=== PATIENT | male | born 1940 | race Caucasian/White ===

== ENCOUNTER 2018-08-03 10:41 | Inpatient (IN) ==
[2018-08-03] MEDS ORDERED: MAGNESIUM SULF RIDER 2 GM in PREMIX 1 EACH IV PRN (11:07)
[2018-08-03] MEDS ORDERED: diphenhydrAMINE CAP 25 MG CAPSULE PO ONE (11:07)
[2018-08-03] MEDS ORDERED: DIAZEPAM 5 MG TABLET PO ONE (11:07)
[2018-08-03] MEDS ORDERED: POTASSIUM CHLORIDE RIDER 10 MEQ in PREMIX 1 EACH IV PRN (11:07)
[2018-08-03] MEDS ORDERED: ASPIRIN 325 MG TABLET PO ONE (11:07)
[2018-08-03] MEDS ORDERED: DEXTROSE 5% NACL 0.45% 1,000 ML IV SCH (11:30)
[2018-08-03 11:34] LABS: Basophils % 0.3 % (0.0-0.8); Eosinophils # 0.1 10*3/uL (0.0-0.87); Eosinophils % 0.6 % (0.00-10.9); Hematocrit 40.3 VOL% (42.0-52.0); Hemoglobin 13.4 GM/DL (14.0-18.0); Immature Granulocytes % 0.3 %; Immature Granulocytes Absolute 0.03 #; Lymphocytes # 0.9 10*3/uL (1.4-4.0); Lymphocytes % 10.4 % (21.2-54.2); Mean Corpuscular HGB Conc 33.3 GM/DL (32-36); Mean Corpuscular Hemoglobin 32 PG (27-34); Mean Corpuscular Volume 97.3 FL (87-102); Mean Platelet Volume 11.2 FL (9.6-12.0); Monocytes # 0.5 10*3/uL (0.11-0.8); Monocytes % 5.7 % (1.7-12.7); Neutrophils # 7.5 10*3/uL (1.4-7.4); Neutrophils % 82.7 % (38.7-73.9); Platelet Count 145 T/CUMM (130-400); Red Blood Count 4.14 MC/CUMM (3.8-5.5); Red Cell Distribution Width 12.9 % (9.3-17.3); White Blood Count 9.1 T/CUMM (4-12)
[2018-08-03 11:43] LABS: PT Patient Result 10.7 SECS
[2018-08-03 11:56] LABS: Anisocytosis Slight; Band Neutrophils 9 % (0-10); Lymphocytes 9 % (20-55); Macrocytosis Slight; Platelet Estimate Adequate; Segmented Neutrophils 80 % (50-85); Total Cells Counted 100
[2018-08-03 11:57] LABS: Calcium 9.1 MG/DL (8.5-10.1); Osmolality,Calculated 286.1 MOS/KG (273-304); Potassium 3.7 MMOL/L (3.5-5.1)
[2018-08-03] MEDS ORDERED: ASPIRIN 325 MG TABLET ONE (13:11)
[2018-08-03] MEDS ORDERED: DIAZEPAM 5 MG TABLET ONE (13:11)
[2018-08-03] MEDS ORDERED: diphenhydrAMINE CAP 25 MG CAPSULE ONE (13:11)
[2018-08-03] MEDS ORDERED: LIDOCAINE 1% 20 ML VIAL ONE (13:48)
[2018-08-03] MEDS ORDERED: HEPARIN/NACL 0.9% 2 UNITS/ML 1,000 ML IV ONE (13:48)
[2018-08-03] MEDS ORDERED: VERAPAMIL 5 MG/2 ML VIAL ONE (13:54)
[2018-08-03] MEDS ORDERED: NITROGLYCERIN DRIP 50 MG/250 ML BOTTLE IV ONE (13:54)
[2018-08-03] MEDS ORDERED: MIDAZOLAM 2 MG/2 ML VIAL ONE (13:54)
[2018-08-03] MEDS ORDERED: fentaNYL 100 MCG/2 ML VIAL ONE (13:54)
[2018-08-03] MEDS ORDERED: ENOXAPARIN 60 MG/0.6 ML SYRINGE ONE (14:22)
[2018-08-03] MEDS ORDERED: SODIUM CHLORIDE 0.9% 1,000 ML IV SCH (17:00)
[2018-08-03] MEDS: CHLORHEXIDINE 4% SOLN 118 ML BOTTLE TOP SCH ×2 (19:07→23:41)
[2018-08-03] MEDS ORDERED: diphenhydrAMINE CAP 50 MG CAPSULE PO ONE (20:17)
[2018-08-03] MEDS: CHLORHEXIDINE 0.12% ORAL RINSE 60 ML BOTTLE SWISH/SPIT SCH (20:32)
[2018-08-03] MEDS ORDERED: PRIMIDONE 250 MG TABLET PO SCH (21:00)
[2018-08-03] MEDS ORDERED: TAMSULOSIN 0.4 MG CAPSULE PO SCH (21:00)
[2018-08-03] MEDS ORDERED: ENOXAPARIN 40 MG/0.4 ML SYRINGE SUBCUT SCH (21:00)
[2018-08-03] MEDS ORDERED: SIMVASTATIN 40 MG TABLET PO SCH (21:00)
[2018-08-03] MEDS ORDERED: ASPIRIN EC 81 MG TABLET PO SCH (21:00)
[2018-08-04 04:27] LABS: Basophils % 0.4 % (0.0-0.8); Eosinophils # 0.4 10*3/uL (0.0-0.87); Eosinophils % 5.4 % (0.00-10.9); Hematocrit 37.5 VOL% (42.0-52.0); Hemoglobin 12.1 GM/DL (14.0-18.0); Immature Granulocytes % 0.4 %; Immature Granulocytes Absolute 0.03 #; Lymphocytes # 1.9 10*3/uL (1.4-4.0); Lymphocytes % 27.3 % (21.2-54.2); Mean Corpuscular HGB Conc 32.3 GM/DL (32-36); Mean Corpuscular Hemoglobin 32 PG (27-34); Mean Corpuscular Volume 100.3 FL (87-102); Monocytes # 0.8 10*3/uL (0.11-0.8); Monocytes % 11.6 % (1.7-12.7); Neutrophils # 3.8 10*3/uL (1.4-7.4); Neutrophils % 54.9 % (38.7-73.9); Platelet Count 128 T/CUMM (130-400); Red Blood Count 3.74 MC/CUMM (3.8-5.5)
[2018-08-04] MEDS: CHLORHEXIDINE 4% SOLN 118 ML BOTTLE TOP SCH ×2 (04:42→19:46)
[2018-08-04 04:45] LABS: Calcium 8.3 MG/DL (8.5-10.1); Osmolality,Calculated 285.1 MOS/KG (273-304)
[2018-08-04] MEDS ORDERED: TISSUE ADHESIVE 1 EACH APPLICATOR TOP ONE (05:13)
[2018-08-04] MEDS ORDERED: PAPAVERINE 60 MG/2 ML VIAL ONE (05:13)
[2018-08-04] MEDS ORDERED: VANCOMYCIN 1,000 MG VIAL ONE (05:14)
[2018-08-04] MEDS ORDERED: METOPROLOL SUCCINATE XL 25 MG TABLET PO SCH (05:30)
[2018-08-04] MEDS ORDERED: LOSARTAN 50 MG TABLET PO SCH (05:30)
[2018-08-04] MEDS ORDERED: FAMOTIDINE 20 MG TABLET PO ONE (06:00)
[2018-08-04] MEDS ORDERED: DIAZEPAM 5 MG TABLET PO ONE (06:00)
[2018-08-04] MEDS ORDERED: HEPARIN/NACL 0.9% 2 UNITS/ML 500 ML IV ONE (06:21)
[2018-08-04] MEDS ORDERED: NITROGLYCERIN DRIP 50 MG/250 ML BOTTLE IV ONE (06:21)
[2018-08-04] MEDS ORDERED: AMINOCAPROIC ACID 5,000 MG/20 ML VIAL ONE (06:21)
[2018-08-04] MEDS ORDERED: PHENYLEPHRINE DRIP 20 MG/250 ML PREMIX IV ONE (06:21)
[2018-08-04] MEDS ORDERED: MIDAZOLAM 10 MG/2 ML VIAL ONE (06:22)
[2018-08-04] MEDS ORDERED: CEFUROXIME INJ 1,500 MG in SYRINGE 1 EACH IV ONE (06:30)
[2018-08-04 07:58] LABS: ABG Base Excess 3.1 MMOL/L (-2.5-2.5); ABG HCO3 27.2 MMOL/L (20-26); ABG Oxygen Saturation 99.7 % (95-100); ABG PH 7.443 (7.35-7.45); ABG TCO2 24.3 MMOL/L (23-27); Glucose Heart Surgery 116 MG/DL (74-106); Hematocrit Heart Surgery 35.3 PERCENT (42-52); Hemoglobin Heart Surgery 11.5 G/DL (14.0-18.0); Ionized Calcium Arterial 1.11 MMOL/L (1.21-1.46); PH Patient Temp Arterial 7.443; Patient Temperature 37 CELCIUS; Potassium Heart/CVR 3.6 MMOL/L (3.5-5.1); Sodium Heart/CVR 139 MMOL/L (135-145)
[2018-08-04 08:12] LABS: Amorphous Crystals,Urine Occasional /HPF (Few); Apearance,Urine Slightly Hazy (Clear); Bacteria,Urine Few /HPF (Few); Bilirubin,Urine Negative (Negative); Blood, Urine Negative (Negative); Glucose,Urine (UA) Negative (Negative); Ketones,Urine Negative (Negative); Nitrite,Urine Negative (Negative); Protein,Urine Negative; Squamous Epithelial Cell,Urine Occasional /HPF (0-10); Urine Color Yellow (Yellow); Urine Specific Gravity 1.014 (1.001-1.035); Urine Urobilinogen < 2.0 EU/DL (0.2-1.0); WBC,Urine 17 /HPF (0-6)
[2018-08-04 08:58] LABS: Hematocrit Heart Surgery 25.6 PERCENT (42-52); Hemoglobin Heart Surgery 8.2 G/DL (14.0-18.0); PCO2 Patient Temp Venous 34.2 MM HG; PH Patient Temp Venous 7.522; PO2 Patient Temp Venous 41.5 MM HG; Potassium Heart/CVR 4.8 MMOL/L (3.5-5.1); VBG Base Excess 5.2 MEQ/L (0-4); VBG Oxygen Saturation 86.7 %; VBG PCO2 37.7 MMHG (41-51); VBG PH 7.492; VBG PO2 47.6 MMHG (17-40)
[2018-08-04] MEDS ORDERED: ESCITALOPRAM 10 MG TABLET PO SCH (09:00)
[2018-08-04] MEDS ORDERED: PANTOPRAZOLE 40 MG TABLET PO SCH (09:00)
[2018-08-04] MEDS ORDERED: hydroCHLOROthiazide 25 MG TABLET PO SCH (09:00)
[2018-08-04 09:25] LABS: Hemoglobin Heart Surgery 8.7 G/DL (14.0-18.0); PH Patient Temp Venous 7.569; PO2 Patient Temp Venous 37.4 MM HG; Potassium Heart/CVR 4.5 MMOL/L (3.5-5.1); VBG Base Excess 4.8 MEQ/L (0-4); VBG HCO3 28.6 MEQ/L (24-28); VBG PCO2 35.2 MMHG (41-51); VBG PH 7.507; VBG PO2 49.1 MMHG (17-40)
[2018-08-04] MEDS ORDERED: ALBUMIN 5% 12.5 GM/250 ML VIAL IV ONE ×3 (10:02→11:23)
[2018-08-04] MEDS ORDERED: POTASSIUM CHLORIDE RIDER 100 ML IV ONE (10:03)
[2018-08-04 10:13] LABS: Hemoglobin Heart Surgery 11.1 G/DL (14.0-18.0); PCO2 Patient Temp Venous 30.6 MM HG; PH Patient Temp Venous 7.552; PO2 Patient Temp Venous 38.2 MM HG; Potassium Heart/CVR 4.5 MMOL/L (3.5-5.1); VBG Base Excess 3.9 MEQ/L (0-4); VBG Oxygen Saturation 84.7 %; VBG PCO2 34.9 MMHG (41-51); VBG PH 7.506; VBG PO2 47.2 MMHG (17-40)
[2018-08-04 10:27] LABS: Hematocrit Heart Surgery 30.4 PERCENT (42-52); Hemoglobin Heart Surgery 9.8 G/DL (14.0-18.0); PCO2 Patient Temp Venous 41.3 MM HG; PH Patient Temp Venous 7.442; PO2 Patient Temp Venous 45.3 MM HG; Potassium Heart/CVR 4.3 MMOL/L (3.5-5.1); VBG Base Excess 3.8 MEQ/L (0-4); VBG HCO3 27.5 MEQ/L (24-28); VBG Oxygen Saturation 81.4 %; VBG PCO2 41.3 MMHG (41-51); VBG PH 7.442; VBG PO2 45.3 MMHG (17-40)
[2018-08-04 10:59] LABS: Hematocrit Heart Surgery 24.3 PERCENT (42-52); Hemoglobin Heart Surgery 7.8 G/DL (14.0-18.0); PCO2 Patient Temp Venous 41.7 MM HG; PH Patient Temp Venous 7.426; PO2 Patient Temp Venous 40.8 MM HG; Potassium Heart/CVR 3.6 MMOL/L (3.5-5.1); VBG Base Excess 2.8 MEQ/L (0-4); VBG HCO3 26.7 MEQ/L (24-28); VBG Oxygen Saturation 75.6 %; VBG PCO2 41.7 MMHG (41-51); VBG PH 7.426; VBG PO2 40.8 MMHG (17-40)
[2018-08-04] MEDS ORDERED: THROMBIN TOPICAL (RECOMBINANT) 5,000 UNIT VIAL TOP ONE (11:19)
[2018-08-04] MEDS ORDERED: MAGNESIUM SULFATE 10 GM/20 ML VIAL IV ONE (11:22)
[2018-08-04] MEDS ORDERED: ALBUMIN 25% 25 GM/100 ML VIAL IV ONE (11:22)
[2018-08-04] MEDS ORDERED: MANNITOL 100 GM/500 ML BAG IV ONE (11:22)
[2018-08-04] MEDS ORDERED: HEPARIN 10,000 UNIT/10 ML VIAL ONE (11:22)
[2018-08-04] MEDS ORDERED: SODIUM BICARBONATE 50 MEQ/50 ML SYRINGE IV ONE (11:22)
[2018-08-04] MEDS ORDERED: DEXTROSE 5% KCL 20 MEQ 20 MEQ/1,000 ML BAG IV ONE (11:22)
[2018-08-04] MEDS ORDERED: PROTAMINE SULFATE 250 MG/25 ML VIAL IV ONE (11:22)
[2018-08-04] MEDS ORDERED: FUROSEMIDE 20 MG/2 ML VIAL ONE (11:23)
[2018-08-04] MEDS ORDERED: methylPREDNISolone SOD SUC 1,000 MG/8 ML VIAL ONE (11:23)
[2018-08-04 11:31] LABS: ABG Base Excess -0.6 MMOL/L (-2.5-2.5); ABG HCO3 22.8 MMOL/L (20-26); ABG Oxygen Saturation 98.6 % (95-100); ABG PCO2 32.8 MM HG (35-48); ABG PO2 340.9 MM HG (80-95); ABG TCO2 23.8 MMOL/L (23-27); Glucose Heart Surgery 244 MG/DL (74-106); Hemoglobin Heart Surgery 9.8 G/DL (14.0-18.0); Ionized Calcium Arterial 1.29 MMOL/L (1.21-1.46); PCO2 Patient Temp Arterial 32.8 MMHG; PO2 Patient Temp Arterial 340.9 MM HG; Patient Temperature 37 CELCIUS; Potassium Heart/CVR 3.1 MMOL/L (3.5-5.1); Sodium Heart/CVR 133 MMOL/L (135-145)
[2018-08-04] MEDS ORDERED: SODIUM CHLORIDE 0.9% 250 ML IV PRN (12:40)
[2018-08-04] MEDS ORDERED: ACETAMINOPHEN 650 MG SUPP RECTAL PRN (12:40)
[2018-08-04] MEDS ORDERED: MAGNESIUM SULF RIDER 2 GM in PREMIX 1 EACH IV PRN (12:40)
[2018-08-04] MEDS ORDERED: MAGNESIUM SULF RIDER 4 GM in PREMIX 1 EACH IV PRN (12:40)
[2018-08-04] MEDS ORDERED: ALBUMIN 5% 12.5 GM in PREMIX 1 EACH IV PRN (12:40)
[2018-08-04] MEDS ORDERED: DEXTROSE 50% 25 GM/50 ML SYRINGE IV PRN ×2 (12:40)
[2018-08-04] MEDS ORDERED: INSULIN REGULAR 100 UNIT/ML IV PRN (12:40)
[2018-08-04] MEDS ORDERED: CHLORHEXIDINE 4% SOLN 118 ML BOTTLE TOP PRN (12:40)
[2018-08-04] MEDS ORDERED: MIDAZOLAM 2 MG/2 ML VIAL IV PRN (12:40)
[2018-08-04] MEDS ORDERED: CALCIUM CHLORIDE 1,000 MG/10 ML SYRINGE IV PRN (12:40)
[2018-08-04] MEDS ORDERED: INSULIN REGULAR DRIP 100 ML IV SCH (13:00)
[2018-08-04] MEDS ORDERED: SODIUM CHLORIDE 0.45% 1,000 ML IV SCH (13:00)
[2018-08-04] MEDS ORDERED: CALCIUM CHLORIDE 1,000 MG/10 ML VIAL IV ONE (13:29)
[2018-08-04] MEDS ORDERED: SEVOFLURANE 1 UNIT/15 MINUTE INH ONE (13:30)
[2018-08-04] MEDS ORDERED: ETOMIDATE 40 MG/20 ML VIAL IV ONE (13:30)
[2018-08-04] MEDS ORDERED: ePHEDrine 50 MG/ML AMP ONE (13:30)
[2018-08-04] MEDS ORDERED: GLYCOPYRROLATE 0.4 MG/2 ML VIAL ONE (13:30)
[2018-08-04] MEDS ORDERED: ESMOLOL 100 MG/10 ML VIAL IV ONE (13:30)
[2018-08-04] MEDS ORDERED: MINERAL OIL/PETROLATUM OPH OINT 3.5 GM TUBE ONE (13:30)
[2018-08-04] MEDS ORDERED: LIDOCAINE 1% 5 ML VIAL ONE (13:30)
[2018-08-04] MEDS ORDERED: PHENYLEPHRINE 1 MG/10 ML SYRINGE IV ONE (13:31)
[2018-08-04] MEDS ORDERED: ROCURONIUM 100 MG/10 ML VIAL IV ONE (13:31)
[2018-08-04 13:49] LABS: ABG Base Excess -0.3 MMOL/L (-2.5-2.5); ABG HCO3 24.2 MMOL/L (20-26); ABG Oxygen Saturation 99.3 % (95-100); ABG PCO2 40.2 MM HG (35-48); ABG PH 7.393 (7.35-7.45); ABG TCO2 22.5 MMOL/L (23-27); Glucose Heart Surgery 241 MG/DL (74-106); Hematocrit Heart Surgery 29.1 PERCENT (42-52); Hemoglobin Heart Surgery 9.4 G/DL (14.0-18.0); Potassium Heart/CVR 3.5 MMOL/L (3.5-5.1)
[2018-08-04 13:53] LABS: Basophils % 0.1 % (0.0-0.8); Eosinophils % 0.3 % (0.00-10.9); Hematocrit 27.7 VOL% (42.0-52.0); Immature Granulocytes % 0.5 %; Immature Granulocytes Absolute 0.05 #; Lymphocytes # 0.6 10*3/uL (1.4-4.0); Lymphocytes % 5.7 % (21.2-54.2); Mean Corpuscular HGB Conc 32.1 GM/DL (32-36); Mean Corpuscular Hemoglobin 30 PG (27-34); Mean Corpuscular Volume 94.2 FL (87-102); Mean Platelet Volume 10.9 FL (9.6-12.0); Monocytes # 0.9 10*3/uL (0.11-0.8); Monocytes % 8.7 % (1.7-12.7); Neutrophils # 8.3 10*3/uL (1.4-7.4); Neutrophils % 84.7 % (38.7-73.9); Red Cell Distribution Width 16.8 % (9.3-17.3)
[2018-08-04 14:00] LABS: Hemoglobin 8.9 GM/DL (14.0-18.0); Platelet Count 104 T/CUMM (130-400); Red Blood Count 2.94 MC/CUMM (3.8-5.5); White Blood Count 9.8 T/CUMM (4-12)
[2018-08-04 14:02] LABS: INR 1.1; PT Patient Result 12.3 SECS; Partial Thromboplastin Time 25.3 SECS (0-40)
[2018-08-04 14:07] LABS: Blood Urea Nitrogen 16 MG/DL (7-18); Calcium 8.1 MG/DL (8.5-10.1); Glucose 229 MG/DL (74-106); Potassium 3.6 MMOL/L (3.5-5.1); Sodium 143 MMOL/L (136-145)
[2018-08-04 14:20] LABS: Band Neutrophils 16 % (0-10); Eosinophils 1 % (0-10); Lymphocytes 2 % (20-55); Metamyelocytes 1 %; Segmented Neutrophils 72 % (50-85); Total Cells Counted 100
[2018-08-04 14:21] LABS: Anisocytosis 2+; Atypical Lymphocytes Few; Hypochromasia 2+; Macrocytosis 2+
[2018-08-04 14:22] LABS: Platelet Estimate Decreased
[2018-08-04] MEDS ORDERED: ASPIRIN 325 MG TABLET PER TUBE ONE (14:30)
[2018-08-04] MEDS: SODIUM CHLORIDE 0.45% 1,000 ML IV SCH (14:44)
[2018-08-04] MEDS: MORPHINE 4 MG/1 ML VIAL IV PRN (16:10)
[2018-08-04] MEDS: POTASSIUM CHLORIDE RIDER 20 MEQ in PREMIX 1 EACH IV PRN ×2 (16:40→23:04)
[2018-08-04] MEDS: POTASSIUM CHLORIDE RIDER 10 MEQ in PREMIX 1 EACH IV PRN (17:10)
[2018-08-04] MEDS: CHLORHEXIDINE 0.12% ORAL RINSE 60 ML BOTTLE SWISH/SPIT SCH ×2 (19:47→21:42)
[2018-08-04 20:24] LABS: ABG Base Excess -1.8 MMOL/L (-2.5-2.5); ABG HCO3 22.9 MMOL/L (20-26); ABG PCO2 41.1 MM HG (35-48); ABG PH 7.365 (7.35-7.45); ABG PO2 93.8 MM HG (80-95); ABG TCO2 21.3 MMOL/L (23-27); Glucose Heart Surgery 164 MG/DL (74-106); Hematocrit Heart Surgery 31.9 PERCENT (42-52); Hemoglobin Heart Surgery 10.3 G/DL (14.0-18.0); Potassium Heart/CVR 3.8 MMOL/L (3.5-5.1)
[2018-08-04] MEDS: VANCOMYCIN INJ 1,000 MG in SODIUM CHLORIDE 0.9% 250 ML IV SCH (21:41)
[2018-08-05] MEDS: MORPHINE 4 MG/1 ML VIAL IV PRN ×5 (01:17→23:25)
[2018-08-05 04:05] LABS: Calcium 7.5 MG/DL (8.5-10.1); Osmolality,Calculated 286.1 MOS/KG (273-304); Potassium 4.3 MMOL/L (3.5-5.1)
[2018-08-05 04:16] LABS: Basophils % 0.1 % (0.0-0.8); Hematocrit 28.8 VOL% (42.0-52.0); Hemoglobin 9.5 GM/DL (14.0-18.0); Immature Granulocytes % 0.5 %; Immature Granulocytes Absolute 0.09 #; Lymphocytes # 0.8 10*3/uL (1.4-4.0); Lymphocytes % 4.4 % (21.2-54.2); Mean Corpuscular Hemoglobin 31 PG (27-34); Mean Corpuscular Volume 94.1 FL (87-102); Mean Platelet Volume 11.4 FL (9.6-12.0); Monocytes # 1.8 10*3/uL (0.11-0.8); Monocytes % 10.2 % (1.7-12.7); Neutrophils # 14.8 10*3/uL (1.4-7.4); Neutrophils % 84.8 % (38.7-73.9); Platelet Count 112 T/CUMM (130-400); Red Blood Count 3.06 MC/CUMM (3.8-5.5); White Blood Count 17.4 T/CUMM (4-12)
[2018-08-05 04:38] LABS: Band Neutrophils 5 % (0-10); Hypochromasia 1+; Lymphocytes 6 % (20-55); Ovalocytes Slight; Platelet Estimate Decreased; Segmented Neutrophils 80 % (50-85); Total Cells Counted 100
[2018-08-05] MEDS: SODIUM CHLORIDE 0.45% 1,000 ML IV SCH (05:01)
[2018-08-05] MEDS ORDERED: FUROSEMIDE 40 MG/4 ML VIAL IV ONE (07:30)
[2018-08-05] MEDS: ASPIRIN EC 325 MG TABLET PO SCH (09:09)
[2018-08-05] MEDS: FUROSEMIDE 40 MG TABLET PO SCH (09:09)
[2018-08-05] MEDS: VANCOMYCIN INJ 1,000 MG in SODIUM CHLORIDE 0.9% 250 ML IV SCH ×2 (09:09→21:01)
[2018-08-05] MEDS: CLOPIDOGREL 75 MG TABLET PO SCH (09:10)
[2018-08-05] MEDS: PANTOPRAZOLE 40 MG VIAL IV SCH (09:10)
[2018-08-05] MEDS: CHLORHEXIDINE 0.12% ORAL RINSE 60 ML BOTTLE SWISH/SPIT SCH ×2 (09:10→21:04)
[2018-08-05] MEDS: INSULIN REGULAR 100 UNIT/ML SUBCUT SCH ×5 (09:36→23:36)
[2018-08-05] MEDS ORDERED: CALCIUM GLUCONATE 1,000 MG in SODIUM CHLORIDE 0.9% 100 ML IV ONE (11:00)
[2018-08-05] MEDS: MORPHINE 10 MG/1 ML VIAL IV PRN (13:54)
[2018-08-05] MEDS: ATORVASTATIN 40 MG TABLET PO SCH (22:33)
[2018-08-06] MEDS: MORPHINE 4 MG/1 ML VIAL IV PRN (04:46)
[2018-08-06 05:02] LABS: Basophils # 0.1 10*3/uL (0.0-0.2); Basophils % 0.2 % (0.0-0.8); Eosinophils % 0.1 % (0.00-10.9); Hematocrit 30.9 VOL% (42.0-52.0); Hemoglobin 10.1 GM/DL (14.0-18.0); Immature Granulocytes % 1.4 %; Immature Granulocytes Absolute 0.32 #; Lymphocytes # 2.1 10*3/uL (1.4-4.0); Lymphocytes % 8.8 % (21.2-54.2); Mean Corpuscular HGB Conc 32.7 GM/DL (32-36); Mean Corpuscular Hemoglobin 31 PG (27-34); Mean Corpuscular Volume 95.1 FL (87-102); Monocytes # 2.5 10*3/uL (0.11-0.8); Monocytes % 10.6 % (1.7-12.7); Neutrophils # 18.6 10*3/uL (1.4-7.4); Neutrophils % 78.9 % (38.7-73.9); Platelet Count 129 T/CUMM (130-400); Red Blood Count 3.25 MC/CUMM (3.8-5.5); Red Cell Distribution Width 16.4 % (9.3-17.3); White Blood Count 23.5 T/CUMM (4-12)
[2018-08-06 05:34] LABS: Calcium 8.1 MG/DL (8.5-10.1); Osmolality,Calculated 287.5 MOS/KG (273-304); Potassium 4.6 MMOL/L (3.5-5.1)
[2018-08-06] MEDS: INSULIN REGULAR 100 UNIT/ML SUBCUT SCH ×5 (05:41→21:23)
[2018-08-06 06:10] LABS: Band Neutrophils 4 % (0-10); Lymphocytes 10 % (20-55); Segmented Neutrophils 81 % (50-85); Total Cells Counted 100
[2018-08-06 06:11] LABS: Anisocytosis 1+; Hypochromasia Slight; Platelet Estimate Adequate
[2018-08-06] MEDS: VANCOMYCIN INJ 1,000 MG in SODIUM CHLORIDE 0.9% 250 ML IV SCH (08:20)
[2018-08-06] MEDS: FUROSEMIDE 40 MG TABLET PO SCH (08:21)
[2018-08-06] MEDS: PANTOPRAZOLE 40 MG VIAL IV SCH (08:21)
[2018-08-06] MEDS: CHLORHEXIDINE 0.12% ORAL RINSE 60 ML BOTTLE SWISH/SPIT SCH ×2 (08:21→21:24)
[2018-08-06] MEDS: ASPIRIN EC 325 MG TABLET PO SCH (08:21)
[2018-08-06] MEDS: CLOPIDOGREL 75 MG TABLET PO SCH (08:21)
[2018-08-06] MEDS ORDERED: LEVOFLOXACIN 250 MG TABLET PO SCH (10:30)
[2018-08-06] MEDS: METOPROLOL SUCCINATE XL 25 MG TABLET PO SCH (11:41)
[2018-08-06] MEDS: ATORVASTATIN 40 MG TABLET PO SCH (21:18)
[2018-08-07 05:06] LABS: Basophils % 0.1 % (0.0-0.8); Eosinophils % 0.3 % (0.00-10.9); Hematocrit 25.7 VOL% (42.0-52.0); Hemoglobin 8.3 GM/DL (14.0-18.0); Immature Granulocytes % 0.8 %; Immature Granulocytes Absolute 0.12 #; Lymphocytes # 1.2 10*3/uL (1.4-4.0); Lymphocytes % 7.7 % (21.2-54.2); Mean Corpuscular HGB Conc 32.3 GM/DL (32-36); Mean Corpuscular Hemoglobin 31 PG (27-34); Mean Corpuscular Volume 95.5 FL (87-102); Mean Platelet Volume 11.4 FL (9.6-12.0); Monocytes # 1.5 10*3/uL (0.11-0.8); Monocytes % 9.3 % (1.7-12.7); Neutrophils # 12.9 10*3/uL (1.4-7.4); Neutrophils % 81.8 % (38.7-73.9); Platelet Count 101 T/CUMM (130-400); Red Blood Count 2.69 MC/CUMM (3.8-5.5); Red Cell Distribution Width 16.1 % (9.3-17.3); White Blood Count 15.7 T/CUMM (4-12)
[2018-08-07 05:44] LABS: Calcium 7.6 MG/DL (8.5-10.1); Osmolality,Calculated 286.5 MOS/KG (273-304); Potassium 3.9 MMOL/L (3.5-5.1)
[2018-08-07 08:20] LABS: Band Neutrophils 6 % (0-10); Lymphocytes 10 % (20-55); Platelet Estimate Adequate; Polychromasia Slight; Segmented Neutrophils 82 % (50-85); Total Cells Counted 100
[2018-08-07] MEDS: ALBUTEROL 2.5 MG/3 ML NEB RESP TX PRN (08:38)
[2018-08-07] MEDS: CLOPIDOGREL 75 MG TABLET PO SCH (09:29)
[2018-08-07] MEDS: METOPROLOL SUCCINATE XL 25 MG TABLET PO SCH (09:29)
[2018-08-07] MEDS: INSULIN REGULAR 100 UNIT/ML SUBCUT SCH ×4 (09:29→21:42)
[2018-08-07] MEDS: POTASSIUM CHLORIDE RIDER 20 MEQ in PREMIX 1 EACH IV PRN (09:30)
[2018-08-07] MEDS: ASPIRIN EC 325 MG TABLET PO SCH (09:30)
[2018-08-07] MEDS: CHLORHEXIDINE 0.12% ORAL RINSE 60 ML BOTTLE SWISH/SPIT SCH ×2 (09:30→21:42)
[2018-08-07] MEDS: DOCUSATE SODIUM 100 MG CAPSULE PO SCH ×2 (09:30→21:35)
[2018-08-07] MEDS: FUROSEMIDE 40 MG TABLET PO SCH (09:30)
[2018-08-07] MEDS: PANTOPRAZOLE 40 MG VIAL IV SCH (09:32)
[2018-08-07 11:27] LABS: Apearance,Urine CLEAR (Clear); Bilirubin,Urine Negative (Negative); Blood, Urine Small mg/dL (Negative); Glucose,Urine (UA) Negative (Negative); Hyaline Casts,Urine 1 /LPF (0-3); Ketones,Urine Negative (Negative); Nitrite,Urine Negative (Negative); Protein,Urine Negative; RBC,Urine <1 /HPF (0-4); Squamous Epithelial Cell,Urine Occasional /HPF (0-10); Urine Color Yellow (Yellow); Urine Urobilinogen < 2.0 EU/DL (0.2-1.0); WBC,Urine 8 /HPF (0-6)
[2018-08-07] MEDS: BISACODYL 5 MG TABLET PO PRN (15:42)
[2018-08-07] MEDS: ATORVASTATIN 40 MG TABLET PO SCH (21:35)
[2018-08-07] MEDS: MORPHINE 10 MG/1 ML VIAL IV PRN (21:36)
[2018-08-08] MEDS: MORPHINE 4 MG/1 ML VIAL IV PRN ×3 (02:24→22:23)
[2018-08-08 09:20] LABS: Basophils % 0.2 % (0.0-0.8); Eosinophils # 0.4 10*3/uL (0.0-0.87); Eosinophils % 3.2 % (0.00-10.9); Hematocrit 28.7 VOL% (42.0-52.0); Hemoglobin 9.1 GM/DL (14.0-18.0); Immature Granulocytes % 0.5 %; Immature Granulocytes Absolute 0.06 #; Lymphocytes # 1.6 10*3/uL (1.4-4.0); Lymphocytes % 12.2 % (21.2-54.2); Mean Corpuscular HGB Conc 31.7 GM/DL (32-36); Mean Corpuscular Hemoglobin 30 PG (27-34); Mean Platelet Volume 11.1 FL (9.6-12.0); Monocytes # 1.4 10*3/uL (0.11-0.8); Neutrophils # 9.4 10*3/uL (1.4-7.4); Neutrophils % 72.9 % (38.7-73.9); Platelet Count 158 T/CUMM (130-400); Red Blood Count 2.99 MC/CUMM (3.8-5.5); Red Cell Distribution Width 16.1 % (9.3-17.3); White Blood Count 12.8 T/CUMM (4-12)
[2018-08-08] MEDS: INSULIN REGULAR 100 UNIT/ML SUBCUT SCH ×4 (09:27→20:37)
[2018-08-08 09:43] LABS: Osmolality,Calculated 283.8 MOS/KG (273-304); Potassium 3.7 MMOL/L (3.5-5.1)
[2018-08-08] MEDS: MORPHINE 10 MG/1 ML VIAL IV PRN ×2 (09:45→14:10)
[2018-08-08 09:53] LABS: Eosinophils 3 % (0-10); Lymphocytes 10 % (20-55); Segmented Neutrophils 75 % (50-85); Total Cells Counted 100
[2018-08-08 09:54] LABS: Anisocytosis 1+; Atypical Lymphocytes Few; Hypochromasia 1+; Macrocytosis 1+
[2018-08-08 09:55] LABS: Platelet Estimate Adequate
[2018-08-08] MEDS: FUROSEMIDE 40 MG TABLET PO SCH (10:06)
[2018-08-08] MEDS: CLOPIDOGREL 75 MG TABLET PO SCH (10:06)
[2018-08-08] MEDS: METOPROLOL SUCCINATE XL 25 MG TABLET PO SCH (10:06)
[2018-08-08] MEDS: DOCUSATE SODIUM 100 MG CAPSULE PO SCH ×2 (10:06→20:36)
[2018-08-08] MEDS: ASPIRIN EC 325 MG TABLET PO SCH (10:06)
[2018-08-08] MEDS: CHLORHEXIDINE 0.12% ORAL RINSE 60 ML BOTTLE SWISH/SPIT SCH ×2 (10:07→20:39)
[2018-08-08] MEDS: PANTOPRAZOLE 40 MG VIAL IV SCH (10:38)
[2018-08-08] MEDS: BISACODYL 5 MG TABLET PO PRN (17:32)
[2018-08-08] MEDS: ATORVASTATIN 40 MG TABLET PO SCH (20:36)
[2018-08-09 05:10] LABS: Basophils % 0.3 % (0.0-0.8); Eosinophils # 0.5 10*3/uL (0.0-0.87); Eosinophils % 4.5 % (0.00-10.9); Hematocrit 24.6 VOL% (42.0-52.0); Immature Granulocytes % 1.1 %; Immature Granulocytes Absolute 0.11 #; Lymphocytes # 1.2 10*3/uL (1.4-4.0); Lymphocytes % 11.4 % (21.2-54.2); Mean Corpuscular HGB Conc 32.5 GM/DL (32-36); Mean Corpuscular Hemoglobin 31 PG (27-34); Mean Corpuscular Volume 95.3 FL (87-102); Mean Platelet Volume 11.5 FL (9.6-12.0); Monocytes # 1.5 10*3/uL (0.11-0.8); Monocytes % 14.5 % (1.7-12.7); Neutrophils # 6.9 10*3/uL (1.4-7.4); Neutrophils % 68.2 % (38.7-73.9); Platelet Count 137 T/CUMM (130-400); Red Blood Count 2.58 MC/CUMM (3.8-5.5); Red Cell Distribution Width 15.9 % (9.3-17.3); White Blood Count 10.2 T/CUMM (4-12)
[2018-08-09 05:23] LABS: Calcium 7.8 MG/DL (8.5-10.1); Osmolality,Calculated 281.7 MOS/KG (273-304); Potassium 3.7 MMOL/L (3.5-5.1)
[2018-08-09 05:40] LABS: Band Neutrophils 1 % (0-10); Eosinophils 4 % (0-10); Hypochromasia 1+; Lymphocytes 14 % (20-55); Macrocytosis Slight; Platelet Estimate Adequate; Segmented Neutrophils 71 % (50-85); Total Cells Counted 100
[2018-08-09] MEDS ORDERED: FUROSEMIDE 40 MG/4 ML VIAL IV ONE (07:01)
[2018-08-09] MEDS ORDERED: SODIUM CHLORIDE 0.9% 1,000 ML IV PRN ×2 (07:03→10:03)
[2018-08-09] MEDS ORDERED: CALCIUM CHLORIDE 1,000 MG/10 ML SYRINGE IV ONE (08:00)
[2018-08-09] MEDS: INSULIN REGULAR 100 UNIT/ML SUBCUT SCH ×4 (08:01→20:36)
[2018-08-09] MEDS: ALBUTEROL 2.5 MG/3 ML NEB RESP TX PRN ×2 (08:25→12:59)
[2018-08-09] MEDS ORDERED: LACTULOSE 20 GM/30 ML UDCUP PO PRN (08:32)
[2018-08-09] MEDS: PANTOPRAZOLE 40 MG VIAL IV SCH (08:54)
[2018-08-09] MEDS: FUROSEMIDE 40 MG TABLET PO SCH (08:55)
[2018-08-09] MEDS: CLOPIDOGREL 75 MG TABLET PO SCH (08:55)
[2018-08-09] MEDS: ASPIRIN EC 325 MG TABLET PO SCH (08:55)
[2018-08-09] MEDS: METOPROLOL SUCCINATE XL 25 MG TABLET PO SCH (08:55)
[2018-08-09] MEDS: DOCUSATE SODIUM 100 MG CAPSULE PO SCH ×2 (08:55→20:36)
[2018-08-09] MEDS: CHLORHEXIDINE 0.12% ORAL RINSE 60 ML BOTTLE SWISH/SPIT SCH ×2 (08:56→20:48)
[2018-08-09] MEDS: MORPHINE 4 MG/1 ML VIAL IV PRN (09:00)
[2018-08-09] MEDS: POLYETHYLENE GLYCOL POWDER 17 GM PACK PO SCH (09:00)
[2018-08-09] MEDS ORDERED: CALCIUM GLUCONATE 1,000 MG in SODIUM CHLORIDE 0.9% 100 ML IV ONE (10:30)
[2018-08-09] MEDS: ONDANSETRON 4 MG/2 ML VIAL IV PRN ×2 (13:01→17:30)
[2018-08-09 20:14] LABS: Hematocrit 28.2 VOL% (42.0-52.0); Hemoglobin 9.2 GM/DL (14.0-18.0)
[2018-08-09] MEDS: ATORVASTATIN 40 MG TABLET PO SCH (20:36)
[2018-08-09] MEDS: MORPHINE 10 MG/1 ML VIAL IV PRN (20:37)
[2018-08-10 05:37] LABS: Basophils % 0.2 % (0.0-0.8); Eosinophils # 0.6 10*3/uL (0.0-0.87); Eosinophils % 5.7 % (0.00-10.9); Hematocrit 26.2 VOL% (42.0-52.0); Hemoglobin 8.5 GM/DL (14.0-18.0); Immature Granulocytes % 1.1 %; Immature Granulocytes Absolute 0.11 #; Lymphocytes # 1.1 10*3/uL (1.4-4.0); Mean Corpuscular HGB Conc 32.4 GM/DL (32-36); Mean Corpuscular Hemoglobin 31 PG (27-34); Mean Corpuscular Volume 94.6 FL (87-102); Monocytes # 1.3 10*3/uL (0.11-0.8); Monocytes % 12.8 % (1.7-12.7); Neutrophils # 7.1 10*3/uL (1.4-7.4); Neutrophils % 69.2 % (38.7-73.9); Platelet Count 134 T/CUMM (130-400); Red Blood Count 2.77 MC/CUMM (3.8-5.5); Red Cell Distribution Width 15.7 % (9.3-17.3); White Blood Count 10.2 T/CUMM (4-12)
[2018-08-10 06:02] LABS: Calcium 7.8 MG/DL (8.5-10.1); Osmolality,Calculated 282.3 MOS/KG (273-304); Potassium 3.4 MMOL/L (3.5-5.1)
[2018-08-10 06:32] LABS: Anisocytosis Slight; Hypochromasia 1+; Macrocytosis Slight; Platelet Estimate Adequate
[2018-08-10] MEDS: POTASSIUM CHLORIDE RIDER 10 MEQ in PREMIX 1 EACH IV PRN ×4 (06:36→15:12)
[2018-08-10] MEDS: INSULIN REGULAR 100 UNIT/ML SUBCUT SCH ×4 (09:02→21:45)
[2018-08-10] MEDS: DOCUSATE SODIUM 100 MG CAPSULE PO SCH ×2 (09:03→20:16)
[2018-08-10] MEDS: FUROSEMIDE 40 MG TABLET PO SCH (09:03)
[2018-08-10] MEDS: METOPROLOL SUCCINATE XL 25 MG TABLET PO SCH (09:03)
[2018-08-10] MEDS: CHLORHEXIDINE 0.12% ORAL RINSE 60 ML BOTTLE SWISH/SPIT SCH ×2 (09:04→21:18)
[2018-08-10] MEDS: CLOPIDOGREL 75 MG TABLET PO SCH (09:04)
[2018-08-10] MEDS: PANTOPRAZOLE 40 MG VIAL IV SCH (09:04)
[2018-08-10] MEDS: ASPIRIN EC 325 MG TABLET PO SCH (09:04)
[2018-08-10] MEDS: POLYETHYLENE GLYCOL POWDER 17 GM PACK PO SCH (09:04)
[2018-08-10] MEDS ORDERED: TUBERCULIN SKIN TEST 0.1 ML SYRINGE INTRADERM ONE (10:16)
[2018-08-10] MEDS ORDERED: ACETYLCYSTEINE 20% 800 MG/4 ML VIAL RESP TX ONE (10:38)
[2018-08-10] MEDS ORDERED: CALCIUM GLUCONATE 1,000 MG in SODIUM CHLORIDE 0.9% 100 ML IV ONE (10:40)
[2018-08-10] MEDS: ALBUTEROL/IPRATROPIUM 3 ML NEB RESP TX SCH ×4 (12:16→23:56)
[2018-08-10] MEDS: ATORVASTATIN 40 MG TABLET PO SCH (20:16)
[2018-08-10] MEDS ORDERED: AZITHROMYCIN 250 MG TABLET PO SCH (21:00)
[2018-08-11] MEDS: ALBUTEROL/IPRATROPIUM 3 ML NEB RESP TX SCH ×3 (03:29→13:48)
[2018-08-11 05:00] LABS: Basophils % 0.4 % (0.0-0.8); Eosinophils # 0.7 10*3/uL (0.0-0.87); Eosinophils % 6.8 % (0.00-10.9); Hematocrit 25.9 VOL% (42.0-52.0); Hemoglobin 8.5 GM/DL (14.0-18.0); Immature Granulocytes % 0.9 %; Immature Granulocytes Absolute 0.09 #; Lymphocytes # 1.3 10*3/uL (1.4-4.0); Lymphocytes % 13.4 % (21.2-54.2); Mean Corpuscular HGB Conc 32.8 GM/DL (32-36); Mean Corpuscular Hemoglobin 31 PG (27-34); Mean Corpuscular Volume 94.9 FL (87-102); Mean Platelet Volume 10.5 FL (9.6-12.0); Monocytes # 1.1 10*3/uL (0.11-0.8); Monocytes % 11.4 % (1.7-12.7); Neutrophils # 6.5 10*3/uL (1.4-7.4); Neutrophils % 67.1 % (38.7-73.9); Platelet Count 155 T/CUMM (130-400); Red Blood Count 2.73 MC/CUMM (3.8-5.5); Red Cell Distribution Width 15.6 % (9.3-17.3); White Blood Count 9.7 T/CUMM (4-12)
[2018-08-11 05:24] LABS: Calcium 7.8 MG/DL (8.5-10.1); Osmolality,Calculated 283.3 MOS/KG (273-304); Potassium 3.6 MMOL/L (3.5-5.1)
[2018-08-11] MEDS: POTASSIUM CHLORIDE RIDER 10 MEQ in PREMIX 1 EACH IV PRN ×3 (06:20→08:20)
[2018-08-11] MEDS: DOCUSATE SODIUM 100 MG CAPSULE PO SCH (08:21)
[2018-08-11] MEDS: ASPIRIN EC 325 MG TABLET PO SCH (08:21)
[2018-08-11] MEDS: CLOPIDOGREL 75 MG TABLET PO SCH (08:21)
[2018-08-11] MEDS: METOPROLOL SUCCINATE XL 25 MG TABLET PO SCH (08:22)
[2018-08-11] MEDS: PANTOPRAZOLE 40 MG VIAL IV SCH (08:22)
[2018-08-11] MEDS: FUROSEMIDE 40 MG TABLET PO SCH (08:22)
[2018-08-11] MEDS: POLYETHYLENE GLYCOL POWDER 17 GM PACK PO SCH (08:26)
[2018-08-11] MEDS: CHLORHEXIDINE 0.12% ORAL RINSE 60 ML BOTTLE SWISH/SPIT SCH (08:26)
[2018-08-11] MEDS: INSULIN REGULAR 100 UNIT/ML SUBCUT SCH ×2 (08:37→13:17)
[2018-08-11 12:00] VITALS: BP 127/65
== END 2018-08-11 14:22 | disposition swing bed (61) | DRG 233 ==
LOC: N.CL 10:41 → N.TELEN 18:27 → N.CVR 08-04 07:46 → N.ICU 08-05 06:53 → N.TELES 08-06 15:15
PROVIDERS: ADMIT Internal Medicine Interventional Cardiology; ATTEND Internal Medicine Interventional Cardiology
PROC: CLCCHCL (ICD-10-PCS; 2018-08-03 14:45)